=== PATIENT | female | born 1960 | race Caucasian/White ===

== ENCOUNTER 2018-02-23 22:08 | Emergency (ER) | payer SELFPAY ==
[2018-02-23 22:52] LABS: APPEARANCE,URINE CLEAR; BILIRUBIN,URINE NEGATIVE (NEGATIVE); COLOR,URINE STRAW; GLUCOSE, URINE 50 mg/dL (NEGATIVE); KETONES,URINE NEGATIVE (NEGATIVE); LEUKOCYTE ESTERASE,URINE NEGATIVE (NEGATIVE); NITRITE,URINE NEGATIVE (NEGATIVE); PROTEIN,URINE 30 mg/dL (NEGATIVE); URINE SPECIFIC GRAVITY 1.008; UROBILINOGEN,URINE NEGATIVE mg/dL (<2.0)
[2018-02-23] MEDS ORDERED: ASPIRIN 81 MG TABLET, CHEWABLE PO ONE (23:41)
--- NOTE | 2018-02-23 23:44 | ER Document Report ---
ED Medical Screen (RME) - General Chief Complaint: Shortness Of Breath Stated Complaint: SHORTNESS OF BREATH Time Seen by Provider: 02/23/18 23:41 Notes: Patient is a 57-year-old female presenting to the emergency department complaining of shortness of breath and generalized chest pain. Patient states she was diagnosed with pneumonia in the middle of December placed on Levaquin states she was feeling fine since those episodes of shortness of breath cough and congestion. States over the last couple of days she has noticed that she has become short of breath again this evening when she tried to lay flat to go to sleep she could not due to the increased respiratory distress she sustained. Patient also states she has generalized tightness all over the center of her chest. Patient denies the pain radiating to her jaw or left arm. Patient states she does not have insurance and is a self-pay. States she is supposed to be on multiple medications for diabetes, hypertension, kidney failure but cannot afford any of them so she has been without them for months now. Past medical history: Diabetes, hypertension, kidney failure, osteoarthritis Medications none Allergies: Sulfa Patient does admit to cigarette smoking on a daily basis physical exam: Lung sounds clear and equal bilateral apices, decreased breath sounds bilateral bases. No edema noted bilateral lower extremities. I have greeted and performed a rapid initial assessment of this patient. A comprehensive ED assessment and evaluation of the patient, analysis of test results and completion of the medical decision making process will be conducted by additional ED providers. TRAVEL OUTSIDE OF THE [place] IN LAST 30 DAYS: No - Related Data Allergies/Adverse Reactions: Sulfa (Sulfonamide Antibiotics) Allergy (Intermediate, Verified 10/17/12 18:57) Past Medical History - Past Medical History Cardiac Medical History: Reports: Hx Hypercholesterolemia, Hx Hypertension Endocrine Medical History: Reports: Hx Diabetes Mellitus Type 1, Hx Diabetes Mellitus Type 2 GI Medical History: Reports: Hx Gastroesophageal Reflux Disease Musculoskeltal Medical History: Reports Hx Arthritis Psychiatric Medical History: Reports: Hx Depression Past Surgical History: Reports: Hx Cholecystectomy, Hx Hysterectomy, Hx Orthopedic Surgery - Immunizations Immunizations up to date: Yes Hx Diphtheria, Pertussis, Tetanus Vaccination: Yes Physical Exam - Vital signs Vitals: Temp Pulse Resp BP Pulse Ox 98.1 F 90 16 158/81 H 95 02/23/18 22:15 02/23/18 22:15 02/23/18 22:15 02/23/18 22:15 02/23/18 22:15 Course - Vital Signs Vital signs: Temp Pulse Resp BP Pulse Ox 98.1 F 90 16 158/81 H 95 02/23/18 22:15 02/23/18 22:15 02/23/18 22:15 02/23/18 22:15 02/23/18 22:15 - Laboratory Laboratory results interpreted by me: 02/23/18 22:30 Urine Protein 30 H Urine Glucose (UA) 50 H
[2018-02-24 00:35] LABS: ABSOLUTE BASOPHILS # (AUTO) 0.1 10^3/uL (0.0-0.2); ABSOLUTE EOSINOPHILS # (AUTO) 0.3 10^3/uL (0.0-0.6); ABSOLUTE LYMPHOCYTES (AUTO) 3.1 10^3/uL (0.5-4.7); ABSOLUTE MONOCYTES (AUTO) 0.6 10^3/uL (0.1-1.4); ABSOLUTE NEUT (AUTO) 6.3 10^3/uL (1.7-8.2); BASOPHILS % (AUTO) 0.8 % (0-2); EOSINOPHILS % (AUTO) 3.2 % (0-6); HEMATOCRIT 41.4 % (36.0-47.0); HEMOGLOBIN 14.2 g/dL (12.0-15.5); LYMPHOCYTES % (AUTO) 29.9 % (13-45); MEAN CORPUSCULAR HEMOGLOBIN 29.2 pg (27.0-33.4); MEAN CORPUSCULAR HGB CONC 34.3 g/dL (32.0-36.0); MEAN CORPUSCULAR VOLUME 85 fl (80-97); PLATELET COUNT 212 10^3/uL (150-450); RED BLOOD COUNT 4.86 10^6/uL (3.72-5.28); RED CELL DISTRIBUTION WIDTH 13.4 % (11.5-14.0); SEGMENTED NEUTROPHILS % (AUTO) 60.1 % (42-78); TOTAL CELLS COUNTED % (AUTO) 100 %; WHITE BLOOD COUNT 10.4 10^3/uL (4.0-10.5)
[2018-02-24] MEDS ORDERED: KETOROLAC TROMETHAMINE INJ/PF 30 MG/1 ML SDV IV ONE (01:15)
--- NOTE | 2018-02-24 01:15 | ER Document Report ---
ED General - General Chief Complaint: Shortness Of Breath Stated Complaint: SHORTNESS OF BREATH Time Seen by Provider: 02/23/18 23:41 Notes: Patient is a 57-year-old female presents with complaint of difficulty breathing. No fevers. No chest pain. No abdominal pain. Patient says that she is actually had the symptoms for almost 2 months. She was initially seen by and placed on Levaquin because the doctor suspected she had some pneumonia based on the way that her lungs sounded. Patient says that she got a little bit better with the Levaquin but since that area has continued to feel a little bit weak. She has no history of heart failure or heart disease. She does smoke. She does have inhalers that she uses at home. She says that she still has some exertional dyspnea. She also has some intermittent edema in her bilateral lower extremities. Sometimes right a little bit worse than the left. TRAVEL OUTSIDE OF THE [place] IN LAST 30 DAYS: No - Related Data Allergies/Adverse Reactions: Sulfa (Sulfonamide Antibiotics) Allergy (Intermediate, Verified 10/17/12 18:57) Past Medical History - Social History Smoking Status: Current Every Day Smoker Chew tobacco use (# tins/day): No Frequency of alcohol use: None Drug Abuse: None Family History: Reviewed & Not Pertinent Patient has suicidal ideation: No Patient has homicidal ideation: No - Past Medical History Cardiac Medical History: Reports: Hx Hypercholesterolemia, Hx Hypertension Endocrine Medical History: Reports: Hx Diabetes Mellitus Type 1, Hx Diabetes Mellitus Type 2 Renal/ Medical History: Denies: Hx Peritoneal Dialysis GI Medical History: Reports: Hx Gastroesophageal Reflux Disease Musculoskeletal Medical History: Reports Hx Arthritis Psychiatric Medical History: Reports: Hx Depression Past Surgical History: Reports: Hx Cholecystectomy, Hx Hysterectomy, Hx Orthopedic Surgery - Immunizations Immunizations up to date: Yes Hx Diphtheria, Pertussis, Tetanus Vaccination: Yes Review of Systems - Review of Systems Notes: My Normal Review Basic REVIEW OF SYSTEMS: CONSTITUTIONAL : Denies fever, chills, or sweats. Denies recent illness. EENT: Denies eye, ear, throat, or mouth pain or symptoms. Denies nasal or sinus congestion. CARDIOVASCULAR: Denies chest pain. RESPIRATORY: Exertional dyspnea GASTROINTESTINAL: Denies abdominal pain. Denies nausea, vomiting, or diarrhea. MUSCULOSKELETAL: Denies neck or back pain or joint pain or swelling. SKIN: Denies rash or skin lesions. LYMPHATIC: Denies swollen, enlarged glands. NEUROLOGICAL: Denies altered mental status or loss of consciousness. Denies headache. Denies weakness or paralysis or loss of use of either side. Denies problems with gait or speech. Denies sensory or motor loss. ALL OTHER SYSTEMS REVIEWED AND NEGATIVE. Physical Exam - Vital signs Vitals: Temp Pulse Resp BP Pulse Ox 98.1 F 90 16 158/81 H 95 02/23/18 22:15 02/23/18 22:15 02/23/18 22:15 02/23/18 22:15 02/23/18 22:15 - Notes Notes: General Appearance: Well nourished, alert, cooperative, no acute distress, no obvious discomfort. Vitals: reviewed, See vital signs table. Head: no swelling or tenderness to the head Eyes: PERRL, EOMI, Conjuctiva clear Mouth: No decreasd moisture Neck: Supple, no neck tenderness, No thyromegaly Lungs: No wheezing, bibasilar rales, No rhonci, No accessory muscle use, good air exchange bilaterally. Heart: Normal rate, Regular rythm, No murmur, no rub Abdomen: Normal BS, soft, No rigidity, No abdominal tenderness, No guarding, no rebound, no abdominal masses, no organomegaly Extremities: strength 5/5 in all extremities, good pulses in all extremities, no swelling or tenderness in the extremities, 1+ bilateral lower extremity edema Skin: warm, dry, appropriate color, no rash Neuro: speech clear, oriented x 3, normal affect, responds appropriately to questions. Course - Re-evaluation Re-evalutation: 02/24/18 02:09 02/24/18 02:19 02/24/18 06:32 Based on her lung auscultation and chest x-ray suspect that her shortness of breath is actually related to some pulmonary edema. She she has slight edema in her lower extremities. I will place her on Lasix. I told her she needs to follow-up with her primary care doctor for reevaluation for possible outpatient echocardiogram. She does not have any murmurs on exam at this time. She has no chest pain and her heart enzymes are negative and her oxygenation is normal and therefore I do not feel that she requires admission at this time. I strongly encouraged her to return to ER if she has chest pain, worsening difficulty breathing, fevers, increasing leg edema, or if she feels unwell. Patient agrees with plan and will be discharged home. Dictation of this chart was performed using voice recognition software; therefore, there may be some unintended grammatical errors. - Vital Signs Vital signs: Temp Pulse Resp BP Pulse Ox 98.5 F 86 18 153/90 H 100 02/24/18 02:47 02/24/18 02:47 02/24/18 02:47 02/24/18 02:47 02/24/18 02:47 - Laboratory Result Diagrams: 02/24/18 00:18 02/24/18 01:07 Laboratory results interpreted by me: 02/23/18 02/24/18 02/24/18 22:30 01:07 01:07 Glucose 214 H AST 46 H Creatine Kinase 415 H CK-MB (CK-2) 4.99 H Urine Protein 30 H Urine Glucose (UA) 50 H - EKG Interpretation by Me Additional EKG results interpreted by me: 02/24/18 01:13 EKG is reviewed and interpreted by me. EKG shows sinus rhythm with rate of [address] segment elevation or depression. No ischemic T wave inversions. [place] interval, QRS durations are within normal range. QT interval is prolonged. No old EKG available for comparison. Discharge - Discharge Clinical Impression: Pulmonary edema Qualifiers: Chronicity: acute Qualified Code(s): J81.0 - Acute pulmonary edema Condition: Good Disposition: HOME, SELF-CARE Additional Instructions: Your chest x-ray shows evidence of some fluid in your lungs. I suspect this is why you have been short of breath when you get up and walk around. I will place you on a fluid pill, Lasix, which will make you urinate more but will also help take off the excess fluid. Anytime an individual starts to have fluid in the lungs we recommend they follow-up with a primary care doctor and have them arrange for an outpatient echocardiogram, ultrasound of your heart, to help evaluate the valves of your heart and function of your heart. Blood work today does not show any evidence of heart attack or damage to your heart. Please have a low threshold to return to the ER if you have worsening difficulty breathing, fevers, or feels unwell. Please keep your legs elevated on pillows at night when asleep. Prescriptions: Furosemide [Lasix 20 mg Tablet] 20 mg PO BID #15 tablet Potassium Chloride 10 meq PO DAILY #14 capsule.er Forms: Special Work Note, Return to Work
[2018-02-24 01:52] LABS: BLOOD UREA NITROGEN 11 mg/dL (7-20); CALCIUM 9.2 mg/dL (8.4-10.2); GLUCOSE 214 mg/dL (75-110)
[2018-02-24 01:53] LABS: ALANINE AMINOTRANSFERASE 42 U/L (9-52); ALBUMIN 3.9 g/dL (3.5-5.0); ALKALINE PHOSPHATASE 118 U/L (38-126); ANION GAP 9 (5-19); ASPARTATE AMINO TRANSFERASE 46 U/L (14-36); BILIRUBIN,TOTAL 0.6 mg/dL (0.2-1.3); CARBON DIOXIDE 30 mmol/L (22-30); CHLORIDE 102 mmol/L (98-107); POTASSIUM 4.3 mmol/L (3.6-5.0); SODIUM 141.1 mmol/L (137-145)
[2018-02-24 01:54] LABS: BILIRUBIN,DIRECT 0.3 mg/dL (0.0-0.4); CREATINE KINASE 415 U/L (30-135); TOTAL PROTEIN 7.4 g/dL (6.3-8.2)
--- NOTE | 2018-02-24 01:58 | RADIOLOGY REPORT (SQ) ---
XR CHEST 1 VIEW HISTORY: Shortness of breath. Chest pain. COMPARISON: 06/19/2010 FINDINGS: Query cardiomegaly with mild pulmonary vascular congestion. The lungs are clear. No pleural effusion or pneumothorax is identified. No acute osseous findings are seen. IMPRESSION: Query mild cardiogenic pulmonary edema.
[2018-02-24 02:02] LABS: CREATINE KINASE MB 4.99 ng/mL (<4.55); TROPONIN I 0.022 ng/mL
[2018-02-24] MEDS ORDERED: FUROSEMIDE 40 MG TABLET PO ONE (02:42)
[2018-02-24 02:48] VITALS: BP 153/90
--- NOTE | 2018-02-24 11:19 | EKG REPORT ---
SEVERITY:- ABNORMAL ECG - SINUS RHYTHM PROBABLE LEFT AND RIGHT ATRIAL ABNORMALITY LEFT VENTRICULAR HYPERTROPHY PROLONGED QT INTERVAL : Confirmed by: Andrea Lock 24-Feb-2018 11:18:38
== END 2018-02-24 02:54 | disposition home or self-care (01) ==
LOC: ER 22:08
DX: J81.0 Acute pulmonary edema (principal); R06.02 Shortness of breath; R06.09 Other forms of dyspnea; I10 Essential (primary) hypertension; Z72.0 Tobacco use; E78.00 Pure hypercholesterolemia, unspecified; R60.0 Localized edema; K21.9 Gastro-esophageal reflux disease without esophagitis; M19.90 Unspecified osteoarthritis, unspecified site; F32.9 Major depressive disorder, single episode, unspecified; Z88.2 Allergy status to sulfonamides
CPT/HCPCS: 36415; 71045; 80053; 81001; 82550; 82553; 83880; 84484; 85025; 93005; 93010; 99285

== ENCOUNTER 2018-05-09 21:00 | Emergency (ER) | payer SELFPAY ==
[2018-05-09 21:09] VITALS: BP 131/69
[2018-05-09] MEDS ORDERED: METOCLOPRAMIDE HCL INJ/PF 10 MG/2 ML SDV IV ONE (22:23)
[2018-05-09] MEDS ORDERED: IBUPROFEN 600 MG TABLET PO ONE (22:24)
[2018-05-09] MEDS ORDERED: NORMAL SALINE 1000 ML 1,000 ML IV ONE (22:24)
[2018-05-09 23:03] LABS: A TYPE INFLUENZA AG NEGATIVE (NEGATIVE); B INFLUENZA AG NEGATIVE (NEGATIVE)
[2018-05-09 23:17] LABS: ABSOLUTE BASOPHILS # (AUTO) 0.1 10^3/uL (0.0-0.2); ABSOLUTE EOSINOPHILS # (AUTO) 0.1 10^3/uL (0.0-0.6); ABSOLUTE LYMPHOCYTES (AUTO) 1.9 10^3/uL (0.5-4.7); ABSOLUTE NEUT (AUTO) 4.7 10^3/uL (1.7-8.2); BASOPHILS % (AUTO) 0.8 % (0-2); HEMATOCRIT 46.9 % (36.0-47.0); HEMOGLOBIN 15.9 g/dL (12.0-15.5); MEAN CORPUSCULAR HEMOGLOBIN 28.8 pg (27.0-33.4); MEAN CORPUSCULAR HGB CONC 33.9 g/dL (32.0-36.0); MEAN CORPUSCULAR VOLUME 85 fl (80-97); MONOCYTES % (AUTO) 12.8 % (3-13); PLATELET COUNT 175 10^3/uL (150-450); RED BLOOD COUNT 5.52 10^6/uL (3.72-5.28); RED CELL DISTRIBUTION WIDTH 13.9 % (11.5-14.0); SEGMENTED NEUTROPHILS % (AUTO) 60.4 % (42-78); TOTAL CELLS COUNTED % (AUTO) 100 %; WHITE BLOOD COUNT 7.7 10^3/uL (4.0-10.5)
[2018-05-09 23:32] LABS: ALANINE AMINOTRANSFERASE 48 U/L (9-52); ALKALINE PHOSPHATASE 118 U/L (38-126); ANION GAP 13 (5-19); ASPARTATE AMINO TRANSFERASE 63 U/L (14-36); BILIRUBIN,DIRECT 0.3 mg/dL (0.0-0.4); BILIRUBIN,TOTAL 0.4 mg/dL (0.2-1.3); BLOOD UREA NITROGEN 22 mg/dL (7-20); CARBON DIOXIDE 25 mmol/L (22-30); CHLORIDE 94 mmol/L (98-107); GLUCOSE 348 mg/dL (75-110); POTASSIUM 3.9 mmol/L (3.6-5.0); SODIUM 132.1 mmol/L (137-145); TOTAL PROTEIN 7.2 g/dL (6.3-8.2)
--- NOTE | 2018-05-10 00:13 | RADIOLOGY REPORT (SQ) ---
CLINICAL HISTORY: cough COMPARISON: None. TECHNIQUE: XR CHEST 1 VIEW 05/09/2018 10:23 PM [employer] FINDINGS: Cardiac silhouette is normal in size. Lungs are clear without consolidation, atelectasis, mass or edema. There is no pleural effusion. There is no pneumothorax. There are no acute osseous findings. IMPRESSION: Clear lungs.
[2018-05-10] MEDS ORDERED: METFORMIN HCL 500 MG TABLET PO ONE (00:33)
[2018-05-10] MEDS ORDERED: GLIPIZIDE 10 MG TABLET PO ONE (00:33)
--- NOTE | 2018-05-10 00:33 | ER Document Report ---
ED General - General Chief Complaint: Flu Symptoms Stated Complaint: POSSIBLE FLU Time Seen by Provider: 05/09/18 22:23 Primary Care Provider: KIRA ZARATE PA-C [Primary Care Provider] - Follow up as needed Notes: Patient is a 57-year-old female with a past medical history of hypertension, pqm-evafddy-gorgsvyem diabetes, currently off all medications, presents complaining of 3-4 days of feeling generally fatigued, having nausea, diarrhea, fever, cough and headache. States that she feels that she has the flu. Sy mptoms started gradually, have been unchanged since onset. Describes her headache as being a mild, throbbing, global headache similar to tension headaches that she has had in the past. Denies focal weakness, numbness or confusion. She has not seen her primary care doctor regarding today's concerns. She has not noted that anything seems to improve or worsen her symptoms. TRAVEL OUTSIDE OF THE [place] IN LAST 30 DAYS: No - Related Data Allergies/Adverse Reactions: Sulfa (Sulfonamide Antibiotics) Allergy (Intermediate, Verified 05/09/18 23:37) Past Medical History - General Information source: Patient - Social History Smoking Status: Current Every Day Smoker Frequency of alcohol use: None Drug Abuse: None Lives with: Family Family History: Reviewed & Not Pertinent Patient has suicidal ideation: No Patient has homicidal ideation: No - Past Medical History Cardiac Medical History: Reports: Hx Hypercholesterolemia, Hx Hypertension Endocrine Medical History: Reports: Hx Diabetes Mellitus Type 1, Hx Diabetes Mellitus Type 2 Renal/ Medical History: Denies: Hx Peritoneal Dialysis GI Medical History: Reports: Hx Gastroesophageal Reflux Disease Musculoskeletal Medical History: Reports Hx Arthritis Psychiatric Medical History: Reports: Hx Depression Past Surgical History: Reports: Hx Cholecystectomy, Hx Hysterectomy, Hx Orthopedic Surgery - Immunizations Immunizations up to date: Yes Hx Diphtheria, Pertussis, Tetanus Vaccination: Yes Review of Systems - Review of Systems Notes: Constitutional: Positive for fever. HENT: Positive for sore throat. Eyes: Negative for visual changes. Cardiovascular: Negative for chest pain. Respiratory: Negative for shortness of breath. Positive for cough Gastrointestinal: Negative for abdominal pain, positive for diarrhea Genitourinary: Negative for dysuria. Musculoskeletal: Negative for back pain. Skin: Negative for rash. Neurological: Negative for headaches, positive for fatigue 10 point ROS negative except as marked above and in HPI. Physical Exam - Vital signs Vitals: Temp Pulse Resp BP Pulse Ox 99.3 F 99 20 131/69 H 99 05/09/18 21:08 05/09/18 21:08 05/09/18 21:08 05/09/18 21:08 05/09/18 21:08 Interpretation: Normal Notes: PHYSICAL EXAMINATION: GENERAL: Well-appearing, well-nourished and in no acute distress. HEAD: Atraumatic, normocephalic. EYES: Pupils equal round and reactive to light, extraocular movements intact, sclera anicteric, conjunctiva are normal. ENT: nares patent, oropharynx clear without exudates. Moist mucous membranes. NECK: Normal range of motion, supple without lymphadenopathy LUNGS: Breath sounds clear to auscultation bilaterally and equal. No wheezes rales or rhonchi. HEART: Regular rate and rhythm without murmurs ABDOMEN: Soft, nontender, normoactive bowel sounds. No guarding, no rebound. No masses appreciated. EXTREMITIES: Normal range of motion, no pitting or edema. No cyanosis. NEUROLOGICAL: No focal neurological deficits. Moves all extremities spontaneously and on command. PSYCH: Normal mood, normal affect. SKIN: Warm, Dry, normal turgor, no rashes or lesions noted. Course - Re-evaluation Re-evalutation: 05/10/18 00:29 Patient presents with cough, nausea, body aches and fever at home consistent with a flulike illness although our flu test here is negative. Sensitivity for this years flu assay is apparently 91-92%. Clinical history and exam is not consistent with an acute bacterial meningitis, encephalitis, pneumonia, there is no evidence of a cellulitis on examination. Patient likewise denies any urinary symptoms. Chest x-ray is clear without any evidence of an acute pneumonia. Patient does not have any focal abdominal tenderness to suggest an acute biliary pathology, acute appendicitis, acute mesenteric ischemia, bowel obstruction, bowel, or any other life-threatening acute intra-abdominal pathology as the etiology of the fever and additional symptoms today. Labs are otherwise unremarkable with the exception of hyperglycemia and patient has been off of her diabetic medications. I have restarted her on glipizide and metformin. Patient has tolerated oral intake without difficulty. Vitals at time of reassessment are within normal limits. At this time will discharge with return precautions and follow-up recommendations. Verbal discharge instructions given a the bedside and opportunity for questions given. Medication warnings reviewed. Patient is in agreement with this plan and has verbalized understanding of return precautions and the need for primary care follow-up in the next 24-72 hours. 05/10/18 00:30 - Vital Signs Vital signs: Temp Pulse Resp BP Pulse Ox 99.3 F 99 20 131/69 H 99 05/09/18 21:08 05/09/18 21:08 05/09/18 21:08 05/09/18 21:08 05/09/18 21:08 - Laboratory Result Diagrams: 05/09/18 23:03 05/09/18 23:03 Laboratory results interpreted by me: 05/09/18 05/09/18 23:03 23:03 RBC 5.52 H Hgb 15.9 H Sodium 132.1 L Chloride 94 L BUN 22 H Glucose 348 H AST 63 H - Diagnostic Test Radiology reviewed: Image reviewed, Reports reviewed Radiology results interpreted by me: 05/10/18 00:30 Chest x-ray: No acute infiltrate or pneumothorax Discharge - Discharge Clinical Impression: Cough Diarrhea Qualifiers: Diarrhea type: unspecified type Qualified Code(s): R19.7 - Diarrhea, unspecif ied Fever Qualifiers: Fever type: unspecified Qualified Code(s): R50.9 - Fever, unspecified Hyperglycemia due to type 2 diabetes mellitus Qualifiers: Diabetes mellitus retirement insulin use: without retirement use Qualified Code(s): E11.65 - Type 2 diabetes mellitus with hyperglycemia Condition: Good Disposition: HOME, SELF-CARE Additional Instructions: Your symptoms are likely due to a viral infection either influenza or similar virus. The only treatment at this time is supportive care including drinking plenty of fluids, Tylenol and ibuprofen, as well as nausea medicines which you will be sent home with. Your symptoms will likely last for 7-10 days. Please return to the emergency department immediately if you become confused, have persistent vomiting, pass out, have severe headache, or have any other symptoms that are worrisome to you. Follow-up with your primary care doctor in the next several days. You need to followup urgently with your primary care doctor as your blood sugars were dangerously high today. You did not have any evidence of a dangerous condition associated with these blood sugars at this time. However, it is very important that you get your blood sugars under control. Please take all of your medications exactly as directed. You should avoid foods that are high in carbohydrates and sugary foods. Losing weight will also help to better control your blood sugars. Please return to emergency department immediately if you de velop weakness, persistent vomiting, confusion, or any other symptoms that are concerning to you. Prescriptions: Glipizide [Glipizide Xl] 10 mg PO DAILY #30 tab.er.24 Metformin HCl [Glucophage 500 mg Tablet] 500 mg PO BID #60 tablet Forms: Return to Work Referrals: KIRA ZARATE PA-C [Primary Care Provider] - Follow up as needed
== END 2018-05-10 01:05 | disposition home or self-care (01) ==
LOC: ER 21:00
DX: E11.65 Type 2 diabetes mellitus with hyperglycemia (principal); R53.83 Other fatigue; R19.7 Diarrhea, unspecified; R50.9 Fever, unspecified; J02.9 Acute pharyngitis, unspecified; R05 Cough; R51 Headache; F17.200 Nicotine dependence, unspecified, uncomplicated
CPT/HCPCS: 99283; 96361; 96374; 36415; 85025; 80053; 87804; 71045; J3490; J2765; J7030

== ENCOUNTER → 2018-11-10 | Outpatient (CLI) | payer OTHER ==
[2018-11-10 09:17] LABS: ALBUMIN 4.2 g/dL (3.5-5.0); ALKALINE PHOSPHATASE 118 U/L (38-126); ANION GAP 9 (5-19); ASPARTATE AMINO TRANSFERASE 50 U/L (14-36); BILIRUBIN,DIRECT 0.2 mg/dL (0.0-0.4); BILIRUBIN,TOTAL 0.5 mg/dL (0.2-1.3); BLOOD UREA NITROGEN 14 mg/dL (7-20); CALCIUM 9.5 mg/dL (8.4-10.2); CARBON DIOXIDE 29 mmol/L (22-30); CHLORIDE 101 mmol/L (98-107); CHOLESTEROL 243.32 mg/dL (0-200); GLUCOSE 226 mg/dL (75-110); POTASSIUM 4.5 mmol/L (3.6-5.0); TOTAL PROTEIN 7.6 g/dL (6.3-8.2); TRIGLYCERIDES 177 mg/dL (<150); URIC ACID 4.9 mg/dL (2.5-7.5)
[2018-11-10 09:28] LABS: DIRECT LDL 203 mg/dL (<100); VLDL CHOLESTEROL 35.4 mg/dL (10-31)
== END ==
LOC: CCC 08:23
DX: E11.8 Type 2 diabetes mellitus with unspecified complications (principal)
CPT/HCPCS: 36415; 80053; 80061; 83036; 84443; 84550

== ENCOUNTER → 2018-12-11 | Outpatient (CLI) | payer OTHER ==
--- NOTE | 2018-12-11 12:01 | RADIOLOGY REPORT (SQ) ---
EXAM DESCRIPTION: CHEST PA/LATERAL COMPLETED DATE/TIME: 12/11/2018 11:43 am REASON FOR STUDY: COUGH COMPARISON: 05/09/2018 EXAM PARAMETERS: NUMBER OF VIEWS: two views TECHNIQUE: Digital Frontal and Lateral radiographic views of the chest acquired. RADIATION DOSE: NA LIMITATIONS: none FINDINGS: LUNGS AND PLEURA: Prominent interstitial markings. No consolidation or effusions. No pne umothorax. MEDIASTINUM AND HILAR STRUCTURES: No masses or contour abnormalities. HEART AND VASCULAR STRUCTURES: Heart normal size. No evidence for failure. BONES: No acute findings. HARDWARE: None in the chest. OTHER: No other significant finding. IMPRESSION: Prominence of interstitial markings. Suspect interstitial pneumonitis. This is increas ed when compared to April of this year. TECHNICAL DOCUMENTATION: JOB ID: [id number] [employer]- All Rights Reserved Reading location - IP/workstation name: [email or web address]
== END ==
LOC: CCC 11:33
DX: R05 Cough (principal)
CPT/HCPCS: 71046

== ENCOUNTER → 2019-01-20 | Outpatient (CLI) | payer OTHER ==
--- NOTE | 2019-01-20 16:08 | XCELERA REPORT ---
[address] [address] Tel: [phone] Fax: [phone] Lower Extremity Arterial Evaluation Name: KIRILL QUINTERO Age: 58 yrs Gender: Female : 1960 Patient Status: Outpatient Patient Location: RAD Study Date: 01/20/2019 01:28 PM Procedure: Ankle brachial indicies performed. Reason For Study: DIABETES Ordering Physician: RAE FREITAS Performed By: Rosana Mcfadden Right Side Arterial Evaluation CALI in Posterior Tibial:1.17. Multiphasic waveform. Left Side Arterial Evaluation CALI in Posterior Tibial:1.09. Multiphasic waveform. Interpretation Summary Normal CALI'b. Suggesting normal arterial system, within the limitations of this technique. : RAE FREITAS > Jas Mclean
--- NOTE | 2019-01-20 16:17 | RADIOLOGY REPORT (SQ) ---
EXAM DESCRIPTION: CAROTID DOPPLER COMPLETED DATE/TIME: 01/20/2019 2:50 pm REASON FOR STUDY: BRUIT I65.23 OCCLUSION AND STENOSIS OF BILATERAL CAROTID ARTERIES E78.5 HYPERLIP IDEMIA, UNSPECIFIED E11.8 TYPE 2 DIABETES MELLITUS WITH UNSPECIFIED COMPLICATION COMPARISON: None. TECHNIQUE: Grayscale ultrasound, Doppler velocity and spectra, and color Doppler images acquired of the extra-cranial carotid and vertebral arteries. Images stored on PACS. LIMITATIONS: None. FINDINGS: RIGHT CAROTID CCA Velocities: Within normal limits. ICA Velocities Peak systolic 0.93 m/s. End diastolic 0.31 m/s. Proximal ICA/CCA peak systolic ratio 1.5. Mild bulb plaque without significant stenosis. LEFT CAROTID CCA Velocities: Within normal limits. ICA Velocities Peak systolic 0.81 m/s. End diastolic 0.26 m/s. Proximal ICA/CCA peak systolic ratio 1.3. Mild bulb plaque without significant stenosis. VERTEBRAL ARTERIES: Antegrade flow. Normal waveforms. SUBCLAVIAN ARTERIES: No finding. OTHER: No other significant finding. IMPRESSION: NO HEMODYNAMICALLY SIGNIFICANT STENOSIS. COMMENT: Quality ID #[id number]: Velocity criteria are extrapolated from the diameter data as defined by t he Society of Radiologists in Ultrasound Consensus Conference. Radiology 2003: 229; 340-346. TECHNICAL DOCUMENTATION: JOB ID: [id number] [employer]- All Rights Reserved Reading location - IP/workstation name: [email or web address]
--- NOTE | 2019-01-20 23:37 | XCELERA REPORT ---
[address] [address] Transthoracic Echocardiogram Report Name: KIRILL QUINTERO Age: 58 yrs Gender: Female : 1960 Patient Status: Outpatient Patient Location: RAD Study Date: 01/20/2019 01:59 PM Height: 68 in Weight: 209 lb BSA: 2.1 m2 Procedure: A two-dimensional transthoracic echocardiogram with color flow and Doppler was performed. The study was technically difficult with many images being suboptimal in quality. Reason For Study: HYPERTENSION History: HYPERTENSION. Ordering Physician: RAE FREITAS Performed By: Rosana Mcfadden Interpretation Summary The left ventricle is normal in size. There is normal left ventricular wall thickness. Left ventricular systolic function is normal. LV EF is 60% Doppler measurements suggest impaired left ventricular relaxation, which is associated with grade I/IV or mild diastolic dysfunction The left ventricular wall motion is normal. There is no thrombus. Cannot assess ASD ,VSD , ot PFO. The right ventricle is not well visualized secondary to technical limitations Right atrium not well visualized secondary to technical limitations The left atrial size is normal. There is no evidence of mitral valve prolapse. There is no vegetation seen on the mitral valve. There is no mitral valve stenosis. There is a trace amount of mitral regurgitation There is aortic sclerosis without aortic stenosis. There is no LVOT obstruction. No aortic regurgitation is present. There is no tricuspid stenosis. There is a trace amount of tricuspid regurgitation Tricuspid regurgitation jet envelope not well defined to measure RV systolic pressure accurately. There is no pulmonic valvular stenosis. There is no pulmonic valvular regurgitation. The aortic root is normal size. The inferior vena cava appeared normal and decreased > 50% with respiration (RAP 5-10 mmHg) There is no pericardial effusion. MMode/2D Measurements & Calculations RVDd: 3.0 cm LVIDd: 4.8 cm FS: 28.7 % Ao root diam: 2.8 cm IVSd: 0.81 cm LVIDs: 3.4 cm EDV(Teich): 105.0 ml Ao root area: 6.1 cm2 LVPWd: 1.1 cm ESV(Teich): 47.0 ml EF(Teich): 55.2 % Doppler Measurements & Calculations MV E max ana paula: MV dec slope: Ao V2 max: LV V1 max P.4 cm/sec 522.7 cm/sec2 172.6 cm/sec 3.3 mmHg MV A max an apaula: MV dec time: 0.18 sec Ao max PG: LV V1 max: 108.4 cm/sec 11.9 mmHg 91.0 cm/sec MV E/A: 0.88 PA V2 max: 106.2 cm/sec PA max P.5 mmHg Left Ventricle The left ventricle is normal in size. There is normal left ventricular wall thickness. Left ventricular systolic function is normal. LV EF is 60%. Doppler measurements suggest impaired left ventricular relaxation, which is associated with grade I/IV or mild diastolic dysfunction. The left ventricular wall motion is normal. There is no thrombus. Cannot assess ASD ,VSD , ot PFO. Right Ventricle The right ventricle is not well visualized secondary to technical limitations. Atria Right atrium not well visualized secondary to technical limitations. The left atrial size is normal. Mitral Valve There is no evidence of mitral valve prolapse. There is no vegetation seen on the mitral valve. There is no mitral valve stenosis. There is a trace amount of mitral regurgitation. Aortic Valve There is no aortic valvular vegetation. There is aortic sclerosis without aortic stenosis. There is no LVOT obstruction. No aortic regurgitation is present. Tricuspid Valve There is no tricuspid stenosis. There is a trace amount of tricuspid regurgitation. Tricuspid regurgitation jet envelope not well defined to measure RV systolic pressure accurately. Pulmonic Valve There is no pulmonic valvular stenosis. There is no pulmonic valvular regurgitation. Great Vessels The aortic root is normal size. The inferior vena cava appeared normal and decreased > 50% with respiration (RAP 5-10 mmHg). Effusions There is no pericardial effusion. : RAE FREITAS Lakshmi
== END ==
LOC: RAD 12:27
PROVIDERS: ATTEND Family Medicine
DX: I65.23 Occlusion and stenosis of bilateral carotid arteries (principal); E11.9 Type 2 diabetes mellitus without complications; E78.5 Hyperlipidemia, unspecified
CPT/HCPCS: 93306; 93880; 93922

== ENCOUNTER → 2019-05-25 | Outpatient (CLI) | payer OTHER ==
[2019-05-25 10:55] LABS: ABSOLUTE BASOPHILS # (AUTO) 0.1 10^3/uL (0.0-0.2); ABSOLUTE EOSINOPHILS # (AUTO) 0.4 10^3/uL (0.0-0.6); ABSOLUTE LYMPHOCYTES (AUTO) 3.5 10^3/uL (0.5-4.7); ABSOLUTE MONOCYTES (AUTO) 0.5 10^3/uL (0.1-1.4); ABSOLUTE NEUT (AUTO) 5.5 10^3/uL (1.7-8.2); BASOPHILS % (AUTO) 0.9 % (0-2); EOSINOPHILS % (AUTO) 3.6 % (0-6); HEMATOCRIT 43.1 % (36.0-47.0); HEMOGLOBIN 14.6 g/dL (12.0-15.5); LYMPHOCYTES % (AUTO) 35.4 % (13-45); MEAN CORPUSCULAR HEMOGLOBIN 28.7 pg (27.0-33.4); MEAN CORPUSCULAR HGB CONC 33.9 g/dL (32.0-36.0); MEAN CORPUSCULAR VOLUME 85 fl (80-97); MONOCYTES % (AUTO) 4.9 % (3-13); PLATELET COUNT 224 10^3/uL (150-450); RED BLOOD COUNT 5.08 10^6/uL (3.72-5.28); RED CELL DISTRIBUTION WIDTH 13.2 % (11.5-14.0); SEGMENTED NEUTROPHILS % (AUTO) 55.2 % (42-78); TOTAL CELLS COUNTED % (AUTO) 100 %; WHITE BLOOD COUNT 9.9 10^3/uL (4.0-10.5)
[2019-05-25 11:18] LABS: ALKALINE PHOSPHATASE 129 U/L (38-126); ANION GAP 7 (5-19); ASPARTATE AMINO TRANSFERASE 35 U/L (14-36); BILIRUBIN,TOTAL 0.4 mg/dL (0.2-1.3); BLOOD UREA NITROGEN 13 mg/dL (7-20); CALCIUM 9.2 mg/dL (8.4-10.2); CARBON DIOXIDE 30 mmol/L (22-30); CHLORIDE 102 mmol/L (98-107); CHOLESTEROL 160.39 mg/dL (0-200); GLUCOSE 216 mg/dL (75-110); TOTAL PROTEIN 7.4 g/dL (6.3-8.2); TRIGLYCERIDES 163 mg/dL (<150); URIC ACID 3.6 mg/dL (2.5-7.5)
[2019-05-25 11:29] LABS: DIRECT LDL 117 mg/dL (<100)
[2019-05-25 11:38] LABS: VLDL CHOLESTEROL 32.6 mg/dL (10-31)
== END ==
LOC: CCC 10:21
DX: E11.8 Type 2 diabetes mellitus with unspecified complications (principal); E78.5 Hyperlipidemia, unspecified
CPT/HCPCS: 36415; 80053; 80061; 84550; 85025

== ENCOUNTER → 2019-06-09 | Outpatient (CLI) | payer OTHER | LOC: CCC 14:13 | DX: E11.8 Type 2 diabetes mellitus with unspecified complications (principal); E78.5 Hyperlipidemia, unspecified | CPT/HCPCS: 82043; 82570 ==

== ENCOUNTER 2020-02-26 07:11 | Emergency (ER) | payer SELFPAY ==
--- NOTE | 2020-02-26 07:20 | EKG REPORT ---
SEVERITY:- ABNORMAL ECG - SINUS RHYTHM BIATRIAL ABNORMALITIES LVH WITH SECONDARY REPOLARIZATION ABNORMALITY BORDERLINE PROLONGED QT INTERVAL : Confirmed by: Luiz Manjarrez MD 26-Feb-2020 07:20:11
[2020-02-26 08:30] LABS: ABSOLUTE BASOPHILS # (AUTO) 0.1 10^3/uL (0.0-0.2); ABSOLUTE EOSINOPHILS # (AUTO) 0.3 10^3/uL (0.0-0.6); ABSOLUTE LYMPHOCYTES (AUTO) 3.7 10^3/uL (0.5-4.7); ABSOLUTE MONOCYTES (AUTO) 0.7 10^3/uL (0.1-1.4); ABSOLUTE NEUT (AUTO) 8.1 10^3/uL (1.7-8.2); BASOPHILS % (AUTO) 0.5 % (0-2); EOSINOPHILS % (AUTO) 2.3 % (0-6); HEMATOCRIT 47.8 % (36.0-47.0); HEMOGLOBIN 16.1 g/dL (12.0-15.5); MEAN CORPUSCULAR HEMOGLOBIN 28.1 pg (27.0-33.4); MEAN CORPUSCULAR HGB CONC 33.7 g/dL (32.0-36.0); MEAN CORPUSCULAR VOLUME 83 fl (80-97); MONOCYTES % (AUTO) 5.3 % (3-13); PLATELET COUNT 241 10^3/uL (150-450); RED BLOOD COUNT 5.73 10^6/uL (3.72-5.28); RED CELL DISTRIBUTION WIDTH 13.3 % (11.5-14.0); SEGMENTED NEUTROPHILS % (AUTO) 62.9 % (42-78); TOTAL CELLS COUNTED % (AUTO) 100 %; WHITE BLOOD COUNT 12.9 10^3/uL (4.0-10.5)
[2020-02-26 08:57] LABS: ALBUMIN 4.4 g/dL (3.5-5.0); ALKALINE PHOSPHATASE 142 U/L (38-126); ANION GAP 9 (5-19); ASPARTATE AMINO TRANSFERASE 40 U/L (14-36); BILIRUBIN,DIRECT 0.2 mg/dL (0.0-0.4); BILIRUBIN,TOTAL 0.6 mg/dL (0.2-1.3); BLOOD UREA NITROGEN 24 mg/dL (7-20); CALCIUM 10.7 mg/dL (8.4-10.2); CARBON DIOXIDE 34 mmol/L (22-30); CHLORIDE 91 mmol/L (98-107); CREATINE KINASE 365 U/L (30-135); GLUCOSE 336 mg/dL (75-110); POTASSIUM 3.8 mmol/L (3.6-5.0)
[2020-02-26 09:17] LABS: CREATINE KINASE MB 4.66 ng/mL (<4.55); TROPONIN I 0.016 ng/mL
[2020-02-26] MEDS ORDERED: ASPIRIN 81 MG TABLET, CHEWABLE PO ONE (09:46)
--- NOTE | 2020-02-26 10:24 | ER Document Report ---
Entered by SHANCIE FRITZ SCRIBE 02/26/20 0926 Acting as scribe for:LESVIA JOSHUA MD ED Cardiac - General Chief Complaint: Chest Pain Stated Complaint: CHEST PAIN Mode of Arrival: Ambulatory Information source: Patient Notes: This 59 year old female patient with a history of HTN, HLD, type 2 diabetes mellitus, and tobacco use presents to the ED today with complaints of right- sided chest pain that woke her up around 0600 this morning. Patient describes the pain as a heavy sensation that made her short of breath. She states that she thought she slept wrong, so she started doing some exercises on the side of bed and taking deep breaths to relieve the pain; however, the pain persisted, so she took x1 of her mom's NTG at 0615 with pain relief about x30 minutes later. Denies any chest pain at this time, but states that "it still feels heavy on my chest." She reports a productive smoker's cough, but no other complaints. Patient mentions that her PCP told her that she had a mild NM about x2 year ago after looking at an EKG. She did not see a telesales professional or have a stress test, c ardiac catheterization, or Echo done at that time. She states since then, she gets a little chest tightness "every now and then" that resolves quickly with rest. TRAVEL OUTSIDE OF THE [place] IN LAST 30 DAYS: No - Related Data Allergies/Adverse Reactions: Sulfa (Sulfonamide Antibiotics) Allergy (Intermediate, Verified 02/26/20 07:20) Past Medical History - General Information source: Patient, [facility] Records - Social History Smoking Status: Current Every Day Smoker Smoking Education Provided: No Family History: Reviewed & Not Pertinent, CAD Patient has suicidal ideation: No Patient has homicidal ideation: No - Past Medical History Cardiac Medical History: Reports: Hx Hypercholesterolemia, Hx Hypertension Endocrine Medical History: Reports: Hx Diabetes Mellitus Type 2 GI Medical History: Reports: Hx Gastroesophageal Reflux Disease Musculoskeletal Medical History: Reports Hx Arthritis Psychiatric Medical History: Reports: Hx Depression Past Surgical History: Reports: Hx Cholecystectomy, Hx Hysterectomy, Hx Orthopedic Surgery - Immunizations Immunizations up to date: Yes Hx Diphtheria, Pertussis, Tetanus Vaccination: Yes Review of Systems - Review of Systems Constitutional: No symptoms reported EENT: No symptoms reported Cardiovascular: See HPI, Chest pain Respiratory: See HPI, Cough, Short of breath Gastrointestinal: No symptoms reported Genitourinary: No symptoms reported Female Genitourinary: No symptoms reported Musculoskeletal: No symptoms reported Skin: No symptoms reported Hematologic/Lymphatic: No symptoms reported Neurological/Psychological: No symptoms reported -: Yes All other systems reviewed and negative Physical Exam - Vital signs Vitals: Temp Pulse Resp BP Pulse Ox 98.5 F 95 16 146/73 H 94 02/26/20 07:14 02/26/20 07:14 02/26/20 07:14 02/26/20 07:14 02/26/20 07:14 - General General appearance: Appears well, Alert In distress: None - HEENT Head: Normocephalic, Atraumatic Eyes: Normal Pupils: PERRL - Respiratory Respiratory status: No respiratory distress Chest status: Tender - Reproducible right anterolateral chest wall tenderness to palpation Breath sounds: Normal Chest palpation: Normal - Cardiovascular Rhythm: Regular Heart sounds: Normal auscultation Murmur: No Friction rub: No Gallop: None auscultated - Abdominal Inspection: Normal Distension: No distension Bowel sounds: Normal Tenderness: Nontender - Abdomen soft Organomegaly: No organomegaly - Back Back: Normal, Nontender - Extremities General upper extremity: Normal inspection General lower extremity: Normal inspection. No: Edema - Neurological Neuro grossly intact: Yes Orientation: AAOx4 Justin Coma Scale Eye Opening: Spontaneous Justin Coma Scale Verbal: Oriented [place] Coma Scale Motor: Obeys Commands Justin Coma Scale Total: 15 - Psychological Associated symptoms: Normal affect, Normal mood - Skin Skin Temperature: Warm Skin Moisture: Dry Skin Color: Normal Course - Re-evaluation Re-evalutation: Patient resting comfortably not showing signs of distress at this time. Patient continues to have right anterior chest wall reproducible pain. - Vital Signs Vital signs: Temp Pulse Resp BP Pulse Ox 98.5 F 95 22 H 124/75 95 02/26/20 07:14 02/26/20 07:14 02/26/20 09:14 02/26/20 09:14 02/26/20 09:14 02/26/20 12:25 Vital signs stable afebrile pulse ox 95%. - Laboratory Result Diagrams: 02/26/20 07:38 02/26/20 07:38 Laboratory results interpreted by me: 02/26/20 02/26/20 02/26/20 07:38 07:38 07:38 WBC 12.9 H RBC 5.73 H Hgb 16.1 H Hct 47.8 H D-Dimer Sodium 133.8 L Chloride 91 L Carbon Dioxide 34 H BUN 24 H Glucose 336 H Calcium 10.7 H AST 40 H ALT 40 H Alkaline Phosphatase 142 H Creatine Kinase 365 H CK-MB (CK-2) 4.66 H 02/26/20 07:38 WBC RBC Hgb Hct D-Dimer 0.81 H Sodium Chloride Carbon Dioxide BUN Glucose Calcium AST ALT Alkaline Phosphatase Creatine Kinase CK-MB (CK-2) 02/26/20 12:25 02/26/20 07:38 02/26/20 07:38 MCV 83 fl (80-97) 02/26/20 07:38 MCH 28.1 pg (27.0-33.4) 02/26/20 07:38 MCHC 33.7 g/dL (32.0-36.0) 02/26/20 07:38 RDW 13.3 % (11.5-14.0) 02/26/20 07:38 Seg Neutrophils % 62.9 % (42-78) 02/26/20 07:38 Chloride 91 mmol/L (98-107) L 02/26/20 07:38 Carbon Dioxide 34 mmol/L (22-30) H 02/26/20 07:38 Anion Gap 9 (5-19) 02/26/20 07:38 Est GFR ( Amer) > 60 (>60) 02/26/20 07:38 Glucose 336 mg/dL (75-110) H 02/26/20 07:38 Calcium 10.7 mg/dL (8.4-10.2) H 02/26/20 07:38 Total Bilirubin 0.6 mg/dL (0.2-1.3) 02/26/20 07:38 AST 40 U/L (14-36) H 02/26/20 07:38 Alkaline Phosphatase 142 U/L (38-126) H 02/26/20 07:38 Total Protein 8.0 g/dL (6.3-8.2) 02/26/20 07:38 Albumin 4.4 g/dL (3.5-5.0) 02/26/20 07:38 02/26/20 02/26/20 02/26/20 07:38 07:38 11:00 Creatine Kinase 365 H CK-MB (CK-2) 4.66 H Troponin I 0.016 0.016 Patient's laboratory shows a normal troponin x2. Rested abnormalities are insignificant. Patient does have a blood sugar of 336 patient is a known diab etic. - Diagnostic Test Radiology reviewed: Image reviewed, Reports reviewed Radiology results interpreted by me: 02/26/20 12:16 Chest X-Ray 02/26/20 09:47 IMPRESSION: No acute radiographic abnormality. Chest/Abdomen CTA 02/26/20 10:40 IMPRESSION: 1. No visualized pulmonary embolism. 2. Bilateral bronchial wall thickening suggestive of bronchitis. Some mild tiny peripheral tree-in-bud opacities which may reflect bronchiolitis. No parenchymal consolidation. 3. Left lower lobe 5 mm pulmonary nodule. Consider follow-up CT in 1 year. 02/26/20 12:26 Chest x-ray shows no acute process. CT angiogram of chest and abdomen shows no visible visualized pulmonary embolism. There is some bronchial wall thickening suggestive of bronchitis. Patient also has a left lower lobe 5 mm pulmonary nodule that requires further follow-up on CT scan. Patient has been instructed of this abnormality and that she knows to follow-up with her primary care physic parminder for monitoring of this. Patient is a known smoker and reports she has a smoker's cough. Patient has been encouraged to discontinue tobacco. - EKG Interpretation by Me Additional EKG results interpreted by me: 02/26/20 12:28 Twelve-lead EKG shows a normal sinus rhythm rate of 88 biatrial abnormalities noted. Left ventricular hypertrophy with secondary repolarization changes noted borderline prolonged QT interval. Left axis deviation NC interval within normal range QRS interval within normal range and borderline prolongation of QT interval. No evidence for an acute STEMI. Discharge - Discharge Clinical Impression: Anterior chest wall pain, Pulmonary nodule Condition: Stable Disposition: HOME, SELF-CARE Instructions: Chest Wall Pain ([facility]) Additional Instructions: You were noted an incidental finding on CT scan of your chest today showing a pulmonary nodule. It is highly recommended that you follow-up with your primary care physician and continue to monitor and track this pulmonary nodule over time to determine the significance of this pulmonary nodule. I personally performed the services described in the documentation, reviewed and edited the documentation which was dictated to the scribe in my presence, and it accurately records my words and actions.
--- NOTE | 2020-02-26 10:45 | RADIOLOGY REPORT (SQ) ---
EXAM DESCRIPTION: CHEST SINGLE VIEW IMAGES COMPLETED DATE/TIME: 02/26/2020 7:25 am REASON FOR STUDY: chest pain COMPARISON: 12/11/2018 EXAM PARAMETERS: NUMBER OF VIEWS: One view. TECHNIQUE: Single frontal radiographic view of the chest acquired. RADIATION DOSE: NA LIMITATIONS: External leads partially obscure underlying structures. FINDINGS: LUNGS AND PLEURA: No opacities, masses or pneumothorax. No pleural effusion. MEDIASTINUM AND HILAR STRUCTURES: Calcified lymph nodes again demonstrated. HEART AND VASCULAR STRUCTURES: Heart normal in size. Normal vasculature. BONES: No acute findings. HARDWARE: None in the chest. OTHER: No other significant finding. IMPRESSION: No acute radiographic abnormality. TECHNICAL DOCUMENTATION: JOB ID: [id number] 2010 [employer]- All Rights Reserved Reading location - IP/workstation name: [email or web address]
--- NOTE | 2020-02-26 12:00 | RADIOLOGY REPORT (SQ) ---
EXAM DESCRIPTION: CTA CHEST IMAGES COMPLETED DATE/TIME: 02/26/2020 8:38 am REASON FOR STUDY: elevated D dimer/right sided chest pain COMPARISON: Single-view chest same date. TECHNIQUE: CT scan of the chest performed using helical scanning technique with dynamic intravenous contrast injection. Images reviewed with lung, soft tissue and bone windows. Reconstructed coronal and sagittal MPR images reviewed. Additional 3 dimensional post-processing performed to develop Maximal Intensity Projection images (LA P). All images stored on PACS. All CT scanners at this facility use dose modulation, iterative reconstruction, and/or weight based d osing when appropriate to reduce radiation dose to as low as reasonably achievable (ALARA). [facility]: Dose Right [facility]: CareDose [facility]: Dose Right [facility]: Teradose 4D [facility]: [employer] CONTRAST TYPE AND DOSE: contrast/concentration: Isovue 350.00 mmol/ml; Total Contrast Delivered: 65. 0 ml; Total Saline Delivered: 30.0 ml Contrast bolus optimized for the pulmonary arteries. Not diagnostic for the aorta. RENAL FUNCTION: Creatinine 0.88 RADIATION DOSE: CT Rad equipment meets quality standard of care and radiation dose reduction techniq ues were employed. CTDIvol: 9.9 - 17.7 mGy. DLP: 671 mGy-cm. . LIMITATIONS: Mild motion artifact. FINDINGS: LUNGS AND PLEURA: There is some mild bronchial wall thickening. No parenchymal consolidat ion. Some regions of mild septal thickening more pronounced inferiorly. Some mild patchy regions of tiny tree and bud opacities could reflect changes of mild bronchiolitis. There is a 5 mm left lower lobe pulmonary nodule (image 88). AORTA AND GREAT VESSELS: No aneurysm. Contrast bolus not optimized for the aorta. HEART: No pericardial effusion. Trace coronary artery calcifications. PULMONARY ARTERIES: No emboli visualized in the main pulmonary arteries or the segmental branches. HILAR AND MEDIASTINAL STRUCTURES: Calcified left AP window lymph node. No pathologically enlarged no ncalcified lymphadenopathy. HARDWARE: None in the chest. UPPER ABDOMEN: Hypodense lesion upper pole right kidney is incompletely characterize. Status post ch olecystectomy. THYROID AND OTHER SOFT TISSUES: No masses. No adenopathy. BONES: No acute or significant finding. 3D MIPS: Confirm above findings. OTHER: No other significant finding. IMPRESSION: 1. No visualized pulmonary embolism. 2. Bilateral bronchial wall thickening suggestive of bronchitis. Some mild tiny peripheral tree-in- bud opacities which may reflect bronchiolitis. No parenchymal consolidation. 3. Left lower lobe 5 mm pulmonary nodule. Consider follow-up CT in 1 year. COMMENT: [place] CRITERIA FOR FOLLOW-UP OF PULMONARY NODULES Incidentally detected new nodules in persons 35 or older. HIGH RISK: History of smoking or other known risk factors. <6 mm single solid nodule: LOW RISK: no routine followup. HIGH RISK: optional CT 12 mo. Quality ID # [id number]: Final reports with documentation of one or more dose reduction techniques (e.g., Au tomated exposure control, adjustment of the mA and/or kV according to patient size, use of iterative reconstruction technique) TECHNICAL DOCUMENTATION: JOB ID: [id number] 2010 [employer]- All Rights Reserved Reading location - IP/workstation name: [email or web address]
[2020-02-26 12:47] VITALS: BP 153/93
== END 2020-02-26 12:46 | disposition home or self-care (01) ==
LOC: ER 07:11
DX: R07.89 Other chest pain (principal); R91.1 Solitary pulmonary nodule; I11.9 Hypertensive heart disease without heart failure; E11.9 Type 2 diabetes mellitus without complications; F17.200 Nicotine dependence, unspecified, uncomplicated; R06.02 Shortness of breath; R05 Cough; Z88.2 Allergy status to sulfonamides; Z82.49 Family history of ischemic heart disease and other diseases of the circulatory system
CPT/HCPCS: 36415; 71045; 71275; 80053; 82550; 82553; 84484; 85025; 85379; 93005; 93010; 99285